=== PATIENT | female | born 1950 | race Caucasian/White ===

== ENCOUNTER → 2016-08-18 | Outpatient (CLI) | payer OTHER | END | disposition home or self-care (01) | LOC: GMAL 10:41 | PROVIDERS: ATTEND Family Medicine | DX: D53.8 Other specified nutritional anemias (principal); R79.9 Abnormal finding of blood chemistry, unspecified ==

== ENCOUNTER → 2016-12-15 | Outpatient (CLI) | payer BC, OTHER ==
--- NOTE | 2016-12-15 09:58 | MRI ---
EXAM DESCRIPTION: Brain w/wo Contrast CLINICAL HISTORY: HEADACHES. Near continuous headaches for 4 months. No injury. No other symptoms. COMPARISON: None available TECHNIQUE: Pre and postcontrast MRI of the brain is performed according to our usual protocol including multiplanar multi sequence technique. FINDINGS: No hemorrhage, mass effect, diffusion restriction, or acute infarction is present. There is normal configuration of the ventricles and sulci. Mild generalized volume loss is present. Few scattered T2/FLAIR hyperintensities in the supratentorial white matter. No abnormal parenchymal or leptomeningeal enhancement. No abnormal extra-axial fluid collections are present. Normal flow voids are present. The calvarium is intact. 1 cm left maxillary mucous retention cyst or polyp. IMPRESSION: 1. No acute intracranial abnormality. 2. Mild volume loss. 3. Few T2/FLAIR hyperintensities in the supratentorial white matter which are nonspecific, but most likely secondary to changes of chronic microangiopathy. Electronically signed by: Pablito Gordon MD 12/15/2016 9:57 AM CDT
== END | disposition home or self-care (01) ==
LOC: MRI 06:54
PROVIDERS: ATTEND Family Medicine
DX: R51 Headache (principal)

== ENCOUNTER → 2017-02-12 | Outpatient (CLI) | payer BC, OTHER | END | disposition home or self-care (01) | LOC: GMAL 10:51 | PROVIDERS: ATTEND Family Medicine | DX: D53.8 Other specified nutritional anemias (principal); R79.9 Abnormal finding of blood chemistry, unspecified ==

== ENCOUNTER 2018-12-14 09:29 | Outpatient (CLI) | payer MEDICARE, OTHER ==
[2018-12-14 09:42] VITALS: BP 116/70; TEMP 98.3; O2SAT 99
[2018-12-14] MEDS ORDERED: MAGNESIUM SULFATE PREMIX 2GM 2 GM in PREMIX BAG 1 BAG IVPB ONE (09:49)
== END 2018-12-14 10:51 | disposition home or self-care (01) ==
LOC: INFRM 09:29
PROVIDERS: ATTEND Family Medicine
DX: E83.42 Hypomagnesemia (principal)
CPT/HCPCS: 96365; J3475

== ENCOUNTER → 2018-12-24 | Outpatient (CLI) | payer MEDICARE, OTHER | LOC: GMAL 10:33 | PROVIDERS: ATTEND Family Medicine | DX: E83.42 Hypomagnesemia (principal); Z79.899 Other long term (current) drug therapy ==

== ENCOUNTER → 2019-01-07 | Outpatient (CLI) | payer MEDICARE, OTHER | LOC: GMAL 10:26 | PROVIDERS: ATTEND Family Medicine | DX: E83.42 Hypomagnesemia (principal); E87.6 Hypokalemia ==

== ENCOUNTER → 2019-01-17 | Outpatient (CLI) | payer MEDICARE, OTHER | LOC: GMAL 10:32 | PROVIDERS: ATTEND Family Medicine | DX: E83.42 Hypomagnesemia (principal); E87.6 Hypokalemia ==

== ENCOUNTER → 2019-01-31 | Outpatient (CLI) | payer MEDICARE, OTHER | LOC: GMAL 16:51 | PROVIDERS: ATTEND Family Medicine | DX: E83.42 Hypomagnesemia (principal); I10 Essential (primary) hypertension ==

== ENCOUNTER 2019-02-25 12:40 | Emergency (ER) | payer MEDICARE, OTHER ==
[2019-02-25] MEDS: ONDANSETRON INJ 4 MG/2 ML VIAL IV ONE (13:32)
[2019-02-25] MEDS: MECLIZINE HCL 12.5 MG TAB PO ONE (13:32)
[2019-02-25] MEDS: SODIUM CHLORIDE 0.9% 1000ML 1,000 ML IVS PRN (13:32)
[2019-02-25] MEDS: SODIUM CHLORIDE 0.9% (FLUSH) 10 ML SYG IV PRN (13:33)
--- NOTE | 2019-02-25 13:34 | ED.PDOC ---
History of Present Illness - General Chief Complaint: GI Problem Stated Complaint: nausea and vomiting Time Seen by Provider: 02/25/19 13:15 Information Source: patient, RN notes reviewed, Vital Signs reviewed, family - Exam Limitations: no limitations - History of Present Illness Initial Comments: Patient is a 68-year-old white female who presents with complaints of un remitting nausea and vomiting for the last 2 days. Patient stated that the nausea and vomiting started 2 days ago and that yesterday she started noticing vertigo. Patient has been unable to hold down any fluids. She denies any vomiting. She denies any blood in her emesis. Patient denies any headache, fevers, chest pain, shortness of breath. The dizziness is worse when she lays down flat. It is improved when she sits upright. The nausea and vomiting are worse when she tries to eat or drink. If she does not eat and drink she is still nauseated but it is improved. The symptoms are severe in nature. Patient denies any pain except when vomiting and then she has a cramping pain in her abdomen. Abdominal Pain Onset Location: generalized abdomen Pain Radiation: no radiation Quality: severe, other - Cramping, waxing/waning Timing/Duration: other - 2 days Improving Factors: other - Upright position Worsening Factors: other - Supine position and eating or drinking. Associated Symptoms: nausea/vomiting, weakness Review of Systems - Review of Systems Constitutional: States: see HPI, malaise, weakness. Denies: chills, fever EENTM: States: no symptoms reported Respiratory: States: no symptoms reported. Denies: cough, short of breath, stridor, wheezing Cardiology: States: no symptoms reported, other - Patient with near syncope.. Denies: chest pain, palpitations Gastrointestinal/Abdominal: States: see HPI, nausea, vomiting. Denies: diarrhea Genitourinary: States: no symptoms reported. Denies: discharge, dysuria, hematuria Musculoskeletal: States: no symptoms reported. Denies: joint pain, joint swelling Skin: States: no symptoms reported Neurological: States: weakness. 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, lung, and other areas Hx of HIV: No Hx Hepatitis C: No Hx MRSA: No Surgical History: appendectomy, cholecystectomy, colectomy, gastric bypass, Hysterectomy - Vaccination History Hx Influenza Vaccination: No Hx Pneumococcal Vaccination: Yes - Social History Hx Tobacco Use: No Hx Alcohol Use: No Hx Substance Use: No Hx Substance Use Treatment: No Hx Depression: No Family Medical History - Family History Mother Family History: No Known Physical Exam - Physical Exam General Appearance: Alert, Anxious, Well Developed, Well Groomed, Well Hydrated, Well Nourished Eyes, Ears, Nose, Throat Exam: PERRL/EOMI, other - Dry mucous membranes. The remainder of the oropharynx exam is normal. Neck: non-tender, full range of motion, supple, normal inspection Respiratory: chest non-tender, lungs clear, normal breath sounds, no respiratory distress, no accessory muscle use Cardiovascular/Chest: normal peripheral pulses, regular rate, rhythm, no edema, no gallop, no JVD, no murmur Peripheral Pulses: No deficit Gastrointestinal/Abdominal: normal bowel sounds, non tender, soft, no organomegaly, no pulsatile mass Back Exam: normal inspection, no CVA tenderness, no vertebral tenderness Extremity: normal range of motion, non-tender, normal inspection, no pedal edema Neurologic: glaze sprayer II-XII nml as tested, no motor/sensory deficits, alert, normal mood/affect, oriented x 3 Skin Exam: normal color, warm/dry, other - Patient with tenting of her skin. Lymphatic: no adenopathy Progress - Progress Progress: Differential diagnosis: Gastroenteritis, dehydration, benign positional vertigo, pneumonia among others. 02/25/19 15:26 Patient is markedly improved after IV Zofran and IV fluids as well as p.o. meclizine. I suspect the patient has a combination of viral gastroenteritis as well as some benign positional vertigo. Plan on discharge home with a prescription for meclizine as well as Zofran. Additionally, patient has some mild hypokalemia and some mild renal insufficiency and dehydration. I have discussed this with the patient. 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 Plan discharge home at this time. Patient and her understand and agree with plan of care. Robert Gross M.D. #[id number] - Results/Orders Results/Orders: EKG performed 25 February 2019 at 1326 hrs.: Normal sinus rhythm at 77 bpm, normal axis deviation, anterior infarct age indeterminate, abnormal EKG. No old EKGs for comparison. 02/25/19 13:15 Sodium Chloride 0.9% (Flush) [Saline Flush Syringe] 10 ml IV PRN PRN Sodium Chloride 0.9% 1000ML [Ns 1000 ml] 1,000 ml IVS .QD EKG STAT 02/25/19 15:21 MAGNESIUM Stat 02/26/19 13:15 EKG STAT Laboratory Results - last 24 hr 02/25/19 02/25/19 02/25/19 13:25 13:25 14:13 WBC 5.6 RBC 4.30 Hgb 13.2 Hct 38.7 MCV 89.9 MCH 30.7 MCHC 34.1 RDW 13.3 Plt Count 201 MPV 8.8 Absolute Neuts (auto) 4.40 Absolute Lymphs (auto) 0.50 L Absolute Monos (auto) 0.70 Absolute Eos (auto) 0.00 Absolute Basos (auto) 0.00 Neutrophils % 78.8 H Lymphocytes % 8.8 L Monocytes % 11.9 H Eosinophils % 0.1 L Basophils % 0.4 Sodium 137 Potassium 3.5 L Chloride 94 L Carbon Dioxide 29 Anion Gap 17.5 BUN 21 H Creatinine 1.24 BUN/Creatinine Ratio 16.9 Random Glucose 99 Serum Osmolality 276.8 Calcium 10.6 H Total Bilirubin 0.6 Direct Bilirubin 0.1 Indirect Bilirubin 0.5 AST 46 H ALT 53 Alkaline Phosphatase 112 Serum Total Protein 8.4 H Albumin 4.4 Lipase 37 Urine Color Yellow Urine Appearance Clear Urine pH 6.5 Ur Specific [place] 1.010 Urine Protein Negative Urine Glucose (UA) Negative Urine Ketones Negative Urine Blood Negative Urine Nitrite Negative Urine Bilirubin Negative Urine Urobilinogen 0.2 Ur Leukocyte Esterase Negative Urine RBC 0 Urine WBC 0 Ur Epithelial Cells 3-5 Urine Bacteria 0 Departure - Departure Clinical Impression: Gastroenteritis, Hypokalemia, Dehydration, mild, Renal insufficiency, mild Benign paroxysmal positional vertigo Qualifiers: Laterality: unspecified laterality Qualified Code(s): H81.10 - Benign paroxysmal vertigo, unspecified ear Time of Disposition: 15:30 Disposition: Discharge to Home or Self Care Condition: Good Departure Forms: ED Discharge - Pt. Copy, Patient Portal Self Enrollment Instructions: Viral Gastroenteritis, Adult (DC), Vertigo (a Type of Dizziness) (DC), Hypokalemia (DC), Dehydration, Adult (DC) Referrals: Brody Edge III, MD [Primary Care Provider] - 1-2 Weeks Prescriptions: Meclizine HCl [Meclizine 25] 25 mg PO Q6H #28 tab Ondansetron Odt [Zofran ODT] 4 mg PO Q6H PRN #20 tab PRN Reason: Nausea Home Medications: Ambulatory Orders Amitriptyline HCl [Elavil] 25 mg PO BEDTIME 02/25/19 Amlodipine Besylate 5 mg PO DAILY 02/25/19 Duloxetine HCl 60 mg PO DAILY 02/25/19 Loratadine 10 mg PO DAILY 02/25/19 Meclizine HCl [Meclizine 25] 25 mg PO Q6H #28 tab 02/25/19 Multiple Vitamin [Multi Vitamin] 1 tab PO DAILY 02/25/19 Ondansetron Odt [Zofran ODT] 4 mg PO Q6H PRN #20 tab 02/25/19 Potassium Chloride [K-Tab] 20 meq PO TID 02/25/19 Spironolactone 25 mg PO DAILY 02/25/19 Zolpidem Tartrate 5 mg PO BEDTIME 02/25/19
[2019-02-25 17:14] VITALS: BP 113/62; TEMP 98.3; O2SAT 96
== END 2019-02-25 15:45 | disposition home or self-care (01) ==
LOC: ER 12:40
DX: K52.9 Noninfective gastroenteritis and colitis, unspecified (principal); H81.10 Benign paroxysmal vertigo, unspecified ear; E86.0 Dehydration; E87.6 Hypokalemia; N28.9 Disorder of kidney and ureter, unspecified; I10 Essential (primary) hypertension; Z85.118 Personal history of other malignant neoplasm of bronchus and lung; Z85.05 Personal history of malignant neoplasm of liver; Z90.49 Acquired absence of other specified parts of digestive tract; Z98.84 Bariatric surgery status; Z92.3 Personal history of irradiation; Z79.899 Other long term (current) drug therapy
CPT/HCPCS: 80048; 80076; 81001; 83690; 83735; 85025; 93005; J2405; J7030

== ENCOUNTER → 2019-03-18 | Outpatient (CLI) | payer MEDICARE, OTHER | LOC: GMAL 10:47 | PROVIDERS: ATTEND Family Medicine | DX: E83.42 Hypomagnesemia (principal); E87.6 Hypokalemia ==

== ENCOUNTER → 2019-04-01 | Outpatient (CLI) | payer MEDICARE, OTHER | LOC: GMAL 12:32 | PROVIDERS: ATTEND Family Medicine | DX: E83.42 Hypomagnesemia (principal); E87.6 Hypokalemia ==

== ENCOUNTER → 2019-04-13 | Outpatient (CLI) | payer MEDICARE, OTHER | LOC: GMAL 10:38 | PROVIDERS: ATTEND Family Medicine | DX: R79.9 Abnormal finding of blood chemistry, unspecified (principal) ==

== ENCOUNTER → 2019-05-09 | Outpatient (CLI) | payer MEDICARE, OTHER | DX: E61.2 Magnesium deficiency (principal); I10 Essential (primary) hypertension ==

== ENCOUNTER → 2019-05-23 | Outpatient (CLI) | payer MEDICARE, OTHER ==
[~2019-05-23] MED LIST: MAGNESIUM SULFATE IV SCH; SODIUM CHLORIDE 0.9% IV SCH
== END ==
LOC: GMAL 10:57
PROVIDERS: ATTEND Family Medicine
DX: E61.2 Magnesium deficiency (principal); I10 Essential (primary) hypertension

== ENCOUNTER → 2019-06-10 | Outpatient (CLI) | payer MEDICARE, OTHER | LOC: GMAL 11:42 | PROVIDERS: ATTEND Family Medicine | DX: E61.2 Magnesium deficiency (principal); I10 Essential (primary) hypertension ==

== ENCOUNTER 2019-06-23 05:35 | Day surgery (SDC) | payer MEDICARE, OTHER ==
[2019-06-23] MEDS ORDERED: LACTATED RINGERS 1,000 ML ONE (06:54)
[2019-06-23] MEDS ORDERED: DEXAMETHASONE INJ 10 MG/ML VIAL ONE (07:00)
[2019-06-23] MEDS ORDERED: PROPOFOL 200 MG/20 ML VIAL IV ONE (07:00)
[2019-06-23] MEDS ORDERED: LIDOCAINE 1% 10 ML VIAL INJ ONE (07:00)
[2019-06-23] MEDS ORDERED: ceFAZolin SODIUM 1 GM VIAL ONE (07:00)
[2019-06-23] MEDS ORDERED: ONDANSETRON INJ 4 MG/2 ML VIAL ONE (07:00)
[2019-06-23] MEDS ORDERED: BUPIVACAINE 0.5% W/EPI 30 ML VIAL INJ ONE (07:24)
[2019-06-23] MEDS ORDERED: SODIUM CHLORIDE 0.9% 50 ML VIAL ONE (07:24)
[2019-06-23] MEDS ORDERED: HEPARIN SODIUM 100 U/ML 5 ML SYG IV ONE (07:24)
[2019-06-23] MEDS ORDERED: LACTATED RINGERS 1,000 ML IVS ONE (08:10)
[2019-06-23] MEDS ORDERED: SCOPOLAMINE PATCH 1.5MG 1 EA TD ONE (09:15)
[2019-06-23] MEDS ORDERED: MIDAZOLAM INJ 2 MG/2 ML VIAL ONE (09:21)
--- NOTE | 2019-06-23 10:24 | OP ---
DATE OF PROCEDURE: 06/23/19 PREOPERATIVE DIAGNOSIS: 1. Poor IV access and need for IV therapy. POSTOPERATIVE DIAGNOSIS: 1. Poor IV access and need for IV therapy. PROCEDURE: 1. Placement of power port Port-A-Cath. 2. Ultrasound guidance for placement of intravenous catheter. 3. Intraoperative fluoroscopy for port placement, less than 1 minute. SURGEON: Guillermo Russell MD. ANESTHESIA: General and local. FINDINGS: There was excellent position of the tip with good flow and flush. COMPLICATIONS: None. ESTIMATED BLOOD LOSS: None. CONDITION: Stable. PLAN: Discharge. INDICATION: As stated. PROCEDURE: General anesthesia was induced. She was prepped and draped in sterile fashion. Local anesthesia was used. Site-Rite ultrasound was used to identify the dominant jugular vein. A single stick was necessary to return to dark blood. The wire was introduced. Fluoroscopy confirmed proper position of the wire with no significant ectopy. The port site was then prepared. A cut was made lateral to the wire and undermined to allow for coverage of the catheter. The introducer dilator was placed and then removed. The trimmed catheter was then placed over the wire. The wire was retrieved. The catheter was tunneled down to the chest site. Fluoroscopy then repeatedly confirmed good position as we withdrew the catheter up to the SVC. We then trimmed the catheter after flushing, mated it and locked it to the port. The port was then placed in the cavity and secured medially with a single Prolene suture. It was functioning well with saline and then flushed with heparinized saline solution. Everything looked good. The wounds were closed in 2 layers and dressing applied. She was awakened and taken to Recovery to be discharged. #[id number] cc: Brody Edge MD [facility]
--- NOTE | 2019-06-23 10:29 | RAD ---
EXAM DESCRIPTION: Fluoroscopy Up to 1Hr CLINICAL HISTORY: 69 years Female, PORT PLACEMENT COMPARISON: Rib series January 18, 2019, chest x-ray May 24, 2008 TECHNIQUE: Fluoroscopy time equals 8.7 seconds. Cumulative dose equals 0.71 mGy. FINDINGS: Single spot film image from vascular procedure, port placement. Port-A-Cath is present with tip in the region of the SVC-right atrial junction. Increased density over the right upper lung zone could be infiltrate surrounding a nodule. Correlate with chest x-ray or chest CT findings. Previous chest x-ray from May 24, 2008 showed no abnormality in this region. Patient had a ribs series including a chest x-ray January 18, 2019 which showed ill-defined infiltrate or scarring in the right upper lobe. IMPRESSION: Spot film images showing Port-A-Cath tip at the SVC-right atrial junction. Density suggesting infiltrate/nodule in the right upper lobe. Correlate with chest x-ray or chest CT findings. Electronically signed by: Ghulam Damon MD 06/23/2019 10:28 AM CDT
[2019-06-23 10:43] VITALS: BP 137/50; TEMP 96.7; O2SAT 91
== END 2019-06-23 11:00 | disposition home or self-care (01) ==
LOC: AMB 05:35
PROVIDERS: ATTEND Surgery
DX: C64.9 Malignant neoplasm of unspecified kidney, except renal pelvis (principal); C78.7 Secondary malignant neoplasm of liver and intrahepatic bile duct; I10 Essential (primary) hypertension; D63.8 Anemia in other chronic diseases classified elsewhere; M81.0 Age-related osteoporosis without current pathological fracture; Z98.84 Bariatric surgery status; Z88.0 Allergy status to penicillin; Z88.5 Allergy status to narcotic agent; Z79.899 Other long term (current) drug therapy
CPT/HCPCS: 36415; 36561; 76000; 80048; 83735; A4216; J0690; J1100; J1642; J2250; J2405; J3490; J7120

== ENCOUNTER → 2019-07-08 | Outpatient (CLI) | payer MEDICARE, OTHER | LOC: GMAL 11:39 | PROVIDERS: ATTEND Family Medicine | DX: E83.42 Hypomagnesemia (principal); Z79.899 Other long term (current) drug therapy ==

== ENCOUNTER → 2019-08-04 | Outpatient (CLI) | payer MEDICARE, OTHER | LOC: GMAL 10:46 | PROVIDERS: ATTEND Family Medicine | DX: E61.2 Magnesium deficiency (principal) ==

== ENCOUNTER → 2019-10-05 | Outpatient (CLI) | payer MEDICARE, OTHER | LOC: GMAL 14:58 | PROVIDERS: ATTEND Family Medicine | DX: D51.3 Other dietary vitamin B12 deficiency anemia (principal); D53.8 Other specified nutritional anemias; R53.82 Chronic fatigue, unspecified; E83.42 Hypomagnesemia; I10 Essential (primary) hypertension; Z79.899 Other long term (current) drug therapy ==

== ENCOUNTER → 2019-11-16 | Outpatient (CLI) | payer MEDICARE, OTHER | LOC: GMAL 10:58 | PROVIDERS: ATTEND Family Medicine | DX: D51.8 Other vitamin B12 deficiency anemias (principal); E61.2 Magnesium deficiency; Z79.899 Other long term (current) drug therapy ==

== ENCOUNTER → 2019-12-23 | Outpatient (CLI) | payer MEDICARE, OTHER | LOC: GMAL 12:49 | PROVIDERS: ATTEND Family Medicine | DX: D51.8 Other vitamin B12 deficiency anemias (principal); E83.42 Hypomagnesemia; I10 Essential (primary) hypertension ==

== ENCOUNTER → 2019-12-27 | Outpatient (CLI) | payer MEDICARE, OTHER | LOC: GMAL 16:45 | PROVIDERS: ATTEND Family Medicine | DX: R30.0 Dysuria (principal) ==

== ENCOUNTER → 2020-02-27 | Outpatient (CLI) | payer MEDICARE | LOC: GMAL 12:03 | PROVIDERS: ATTEND Family Medicine | DX: E61.2 Magnesium deficiency (principal); N18.9 Chronic kidney disease, unspecified ==

== ENCOUNTER → 2020-03-19 | Outpatient (CLI) | payer MEDICARE | LOC: GMAL 11:36 | PROVIDERS: ATTEND Family Medicine | DX: R79.9 Abnormal finding of blood chemistry, unspecified (principal); Z79.899 Other long term (current) drug therapy; R73.09 Other abnormal glucose ==